=== PATIENT | female | born 1990 | race Caucasian/White ===

== ENCOUNTER 2020-05-13 09:36 | Emergency (ER) | payer OTHER ==
[2020-05-13] MEDS ORDERED: KETOROLAC 30 MG/ML INJ ONE (11:24)
[2020-05-13] MEDS ORDERED: ONDANSETRON 4 MG/2 ML VIAL ONE (11:24)
[2020-05-13] MEDS ORDERED: NA CHLORIDE 0.9% 1,000 ML ONE (11:24)
[2020-05-13 11:35] LABS: Urine Blood NEGATIVE (NEG); Urine Glucose NEGATIVE (NEG); Urine Protein NEGATIVE (NEG); Urine Specific Gravity 1.025 (1.005-1.030); Urine pH 8.5 (5.0-7.0)
--- NOTE | 2020-05-13 11:52 | RAD REPORT ---
EXAM DESCRIPTION: US - Abdomen Exam Limited - 05/13/2020 11:21 am CLINICAL HISTORY: ABD PAIN COMPARISON: No comparisons FINDINGS: Patient was not fasting for the examination. The gallbladder is adequately filled for eval uation. No gallstones, sludge or other abnormalities within the gallbladder lumen. There is no wall t hickening or pericholecystic fluid. No common duct stone or biliary tree dilatation identified. IMPRESSION: Normal gallbladder and biliary tree ultrasound.
[2020-05-13 12:32] LABS: Absolute Lymphocytes (CBC) 1.6 K/uL (0.7-4.9); Basophils % 0.3 % (0-1.3); Hematocrit 35.1 % (36.0-45.0); Lymphocytes % 20.5 % (15.3-44.8); MPV 7.7 fL (7.6-11.3); RBC Red Blood Cell Count 4.53 M/uL (3.86-4.86)
[2020-05-13 12:51] LABS: Albumin 3.2 g/dL (3.4-5.0); Bilirubin Direct 0.1 mg/dL (0-0.2); Bilirubin Total 0.3 mg/dL (0.2-1.0); Potassium 4.4 mmol/L (3.5-5.1); Protein, Total 7.3 g/dL (6.4-8.2)
--- NOTE | 2020-05-13 13:57 | RAD REPORT ---
EXAM DESCRIPTION: CTAbdomen Pelvis W Contrast - 05/13/2020 1:37 pm CLINICAL HISTORY: Abdominal pain. ABD PAIN COMPARISON: No comparisons TECHNIQUE: Biphasic CT imaging of the abdomen and pelvis was performed with 100 ml non-ionic IV cont rast. All CT scans are performed using dose optimization technique as appropriate and may include automated exposure control or mA/KV adjustment according to patient size. FINDINGS: Slight interstitial lung opacities are seen left lung base laterally. The liver, spleen, pancreas, adrenal glands and kidneys are within normal limits. No bowel obstruction, free air, free fluid or abscess. Significant fecal retention throughout the col on with fecalization of small bowel also seen. The appendix is normal. No evidence of significant ly mphadenopathy. No suspicious bony findings. IMPRESSION: Significant fecal retention pattern is noted.
--- NOTE | 2020-05-13 14:13 | EDPHYS ---
Physician Documentation [facility] Name: Melissa Reyes Age: 29 yrs Sex: Female : 1990 Arrival Date: 05/13/2020 Time: 09:40 Bed 20 Private MD: ED Physician Sylvester Lott HPI: 05/13 14:11 This 29 yrs old Female presents to ER via Ambulatory with complaints of kb Abdominal Pain. 14:11 The patient presents with abdominal pain in the right upper quadrant. Onset: The kb symptoms/episode began/occurred 3 day(s) ago. The symptoms do not radiate. Associated signs and symptoms: Pertinent positives: nausea. The symptoms are described as constant. Modifying factors: The symptoms are alleviated by nothing, the symptoms are aggravated by nothing. Severity of pain: At its worst the pain was moderate in the emergency department the pain is unchanged. The patient has not experienced similar symptoms in the past. The patient has not recently seen a physician. Pt reports RUQ pain that started 3 days ago. States the pain lasted for a short time and resolved on its own the first two days. Today that pain would not go away. 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 - Social history:: Smoking status: Patient reports the use of cigarette tobacco products, smokes one-half pack cigarettes per day. ROS: 14:10 Constitutional: Negative for fever, chills, and weight loss, Cardiovascular: Negative kb for chest pain, palpitations, and edema, Respiratory: Negative for shortness of breath, cough, wheezing, and pleuritic chest pain, Back: Negative for injury and pain, MS/Extremity: Negative for injury and deformity, Skin: Negative for injury, rash, and discoloration, Neuro: Negative for headache, weakness, numbness, tingling, and seizure. 14:10 Abdomen/GI: Positive for abdominal pain, nausea. Exam: 14:10 Constitutional: This is a well developed, well nourished patient who is awake, alert, kb and in no acute distress. Head/Face: Normocephalic, atraumatic. Chest/axilla: Normal chest wall appearance and motion. Nontender with no deformity. No lesions are appreciated. Cardiovascular: Regular rate and rhythm with a normal S1 and S2. No gallops, murmurs, or rubs. Normal PMI, no JVD. No pulse deficits. Respiratory: Lungs have equal breath sounds bilaterally, clear to auscultation and percussion. No rales, rhonchi or wheezes noted. No increased work of breathing, no retractions or nasal flaring. Back: No spinal tenderness. No costovertebral tenderness. Full range of motion. Skin: Warm, dry with normal turgor. Normal color with no rashes, no lesions, and no evidence of cellulitis. MS/ Extremity: Pulses equal, no cyanosis. Neurovascular intact. Full, normal range of motion. Neuro: Awake and alert, GCS 15, oriented to person, place, time, and situation. Cranial nerves II-XII grossly intact. Motor strength 5/5 in all extremities. Sensory grossly intact. Cerebellar exam normal. Normal gait. 14:10 Abdomen/GI: Inspection: abdomen appears normal, Bowel sounds: normal, in all quadrants, Palpation: soft, in all quadrants, moderate abdominal tenderness, in the right upper quadrant. Vital Signs: 10:01 BP 117 / 81; Pulse 76; Resp 18 S; Temp 97.1(TE); Pulse Ox 100% on R/A; Weight 99.79 kg ca1 (R); Height 5 ft. 10 in. (177.80 cm) (R); Pain 10/10; 10:01 Body Mass Index 31.57 (99.79 kg, 177.80 cm) ca1 MDM: 10:47 Patient medically screened. kb 14:10 Data reviewed: vital signs, nurses notes. Data interpreted: Pulse oximetry: on room air kb is 100 %. Interpretation: normal. Counseling: I had a detailed discussion with the patient and/or guardian regarding: the historical points, exam findings, and any diagnostic results supporting the discharge/admit diagnosis, lab results, radiology results, the need for outpatient follow up, a family practitioner, to return to the emergency department if symptoms worsen or persist or if there are any questions or concerns that arise at home. 05/13 11:00 Order name: Basic Metabolic Panel; Complete Time: 12:57 kb 05/13 11:00 Order name: CBC with Diff; Complete Time: 12:36 kb 05/13 11:00 Order name: Hepatic Function; Complete Time: 12:57 kb 05/13 11:00 Order name: Lipase; Complete Time: 12:57 kb 05/13 11:27 Order name: Urine Dipstick--Ancillary (enter results); Complete Time: 11:40 bd 05/13 11:27 Order name: Urine --Ancillary (enter results); Complete Time: 11:40 bd 05/13 10:10 Order name: Urine Test (obtain specimen); Complete Time: 12:31 kb 05/13 10:10 Order name: Urine Dipstick-Ancillary (obtain specimen); Complete Time: 12:31 kb 05/13 11:00 Order name: US Abdomen Limited; Complete Time: 11:53 kb 05/13 12:38 Order name: CT Abd/Pelvis - IV Contrast Only; Complete Time: 14:00 kb 05/13 11:00 Order name: IV Saline Lock; Complete Time: 12:31 kb 05/13 11:00 Order name: Labs collected and sent; Complete Time: 12:31 kb Administered Medications: 12:31 Drug: NS 0.9% 1000 ml Route: IV; Rate: 1000 ml; Site: left antecubital; ph 15:15 Follow up: Response: No adverse reaction; IV Status: Completed infusion; IV Intake: ph 1000ml 12:31 Drug: Zofran (Ondansetron) 4 mg Route: IVP; Site: left antecubital; ph 15:16 Follow up: Response: No adverse reaction ph 12:31 Drug: TORadol - Ketorolac 15 mg Route: IVP; Site: left antecubital; ph 15:16 Follow up: Response: No adverse reaction ph 15:10 Drug: Magnesium Citrate Liquid 300 ml Route: PO; ph 15:16 Follow up: Response: No adverse reaction ph Disposition: 17:51 Co-signature as Attending Physician, Sylvester Lott MD. rn Disposition: 05/13/20 14:13 Discharged to Home. Impression: Upper abdominal pain, unspecified, Constipation. - Condition is Stable. - Discharge Instructions: Biliary Colic, Adult, Constipation, Adult, [id number]. - Prescriptions for Bentyl 20 mg Oral Tablet - take 1 tablet by ORAL route every 6 hours As needed; 20 tablet. Zofran 4 mg Oral Tablet - take 1 tablet by ORAL route every 6 hours As needed; 20 tablet. - Medication Reconciliation Form, Thank You Letter, Antibiotic Education, Prescription Opioid Use form. - Follow up: Emergency Department; When: As needed; Reason: Worsening of condition. Follow up: Private Physician; When: 2 - 3 days; Reason: Recheck today's complaints, Continuance of care, Re-evaluation by your physician. Signatures: Dispatcher [employer] EDMS Ana Velasquez, JOMAR-Hailey LAKEP-Sylvester Muñoz MD MD rn Frieda Miguel RN RN [employer], Vianney RN RN [facility] Corrections: (The following items were deleted from the chart) 15:23 14:13 05/13/2020 14:13 Discharged to Home. Impression: Upper abdominal pain, ph unspecified; Constipation. Condition is Stable. Forms are Medication Reconciliation Form, Thank You Letter, Antibiotic Education, Prescription Opioid Use. Follow up: Emergency Department; When: As needed; Reason: Worsening of condition. Follow up: Private Physician; When: 2 - 3 days; Reason: Recheck today's complaints, Continuance of care, Re-evaluation by your physician. kb
--- NOTE | 2020-05-13 14:13 | ER ---
Nurse's Notes [facility] Name: Melissa Reyes Age: 29 yrs Sex: Female : 1990 Arrival Date: 05/13/2020 Time: 09:40 Bed 20 Private MD: Diagnosis: Upper abdominal pain, unspecified;Constipation Presentation: 05/13 10:01 Chief complaint: Patient states: Lower abdominal pain, more on R, intermittent and ca1 crampy, radiating to the R mid back. Started 3 days ago. Reports nausea. Denies vomiting and diarrhea. Coronavirus screen: Patient denies a cough. Patient denies shortness of breath or difficulty breathing. Patient denies measured and/or subjective temperature greater than 100.4F prior to today's visit. Patient denies travel on a cruise ship or to a country the [facility] currently lists as an affected area. Patient denies contact with known and/or suspected case of COVID-19. Proceed with normal triage. Ebola Screen: Patient negative for fever greater than or equal to 101.5 degrees Fahrenheit, and additional compatible Ebola Virus Disease symptoms Patient denies exposure to infectious person. Patient denies travel to an Ebola-affected area in the 21 days before illness onset. No symptoms or risks identified at this time. Initial Sepsis Screen: Does the patient meet any 2 criteria? No. Patient's initial sepsis screen is negative. Does the patient have a suspected source of infection? No. Patient's initial sepsis screen is negative. Risk Assessment: Do you want to hurt yourself or someone else? Patient reports no desire to harm self or others. Onset of symptoms was May 13, 2020. 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 - Social history:: Smoking status: Patient reports the use of cigarette tobacco products, smokes one-half pack cigarettes per day. Screenin:21 Abuse screen: Denies threats or abuse. Denies injuries from another. Nutritional ph screening: No deficits noted. Tuberculosis screening: No symptoms or risk factors identified. Fall Risk None identified. Assessment: 11:00 General: Appears in no apparent distress. comfortable, well groomed, Behavior is calm, ph cooperative, appropriate for age, Denies fever. Pain: Complains of pain in epigastric area Pain radiates to right upper quadrant. Neuro: Level of Consciousness is awake, alert, obeys commands, Oriented to person, place, time, situation. Cardiovascular: Capillary refill < 3 seconds in bilateral fingers Patient's skin is warm and dry. Respiratory: Reports cough that is Airway is patent Respiratory effort is even, unlabored, Denies shortness of breath. GI: Abdomen is round non-distended, Abd is soft X 4 quads Abdomen is tender to palpation in right upper quadrant. GI: Reports upper abdominal pain, epigastric pain, nausea. Derm: Skin is intact, is healthy with good turgor, Skin is pink, warm \\T\\ dry. Musculoskeletal: Circulation, motion, and sensation intact. Range of motion: intact in all extremities. 13:46 Reassessment: Patient appears in no apparent distress at this time. Patient and/or ph family updated on plan of care and expected duration. Pain level reassessed. Patient is alert, oriented x 3, equal unlabored respirations, skin warm/dry/pink. Pt taken to CT via wheelchair. 14:45 Reassessment: Patient appears in no apparent distress at this time. Patient and/or ph family updated on plan of care and expected duration. Pain level reassessed. Patient is alert, oriented x 3, equal unlabored respirations, skin warm/dry/pink. Pt contacting rehab facility to inform them of possible COVID and see if she will be d/c from there. 15:16 Reassessment: Patient appears in no apparent distress at this time. Patient and/or ph family updated on plan of care and expected duration. Pain level reassessed. Patient is alert, oriented x 3, equal unlabored respirations, skin warm/dry/pink. Pt d/c to [facility], states, " I have to wait in the lobby while they pack my stuff and my family has to come and get me from there." Instructed pt to find [facility] testing facility when she returns home. Vital Signs: 10:01 BP 117 / 81; Pulse 76; Resp 18 S; Temp 97.1(TE); Pulse Ox 100% on R/A; Weight 99.79 kg ca1 (R); Height 5 ft. 10 in. (177.80 cm) (R); Pain 10/10; 10:01 Body Mass Index 31.57 (99.79 kg, 177.80 cm) ca1 ED Course: 09:40 Patient arrived in ED. fj1 09:53 Ana Velasquez FNP-C [facility]. kb 09:53 Sylvester Lott MD is Attending Physician. kb 10:03 Triage completed. ca1 10:07 Arm band placed on right wrist. ca1 11:00 Patient has correct armband on for positive identification. Bed in low position. Call ph light in reach. Side rails up X 1. Pulse ox on. NIBP on. Door closed. Noise minimized. Warm blanket given. 11:12 Frieda Miguel, RN is Primary Nurse. ph 11:22 US Abdomen Limited In Process Unspecified. EDMS 12:22 Inserted saline lock: 20 gauge in left antecubital area, using aseptic technique. dh4 13:37 CT Abd/Pelvis - IV Contrast Only In Process Unspecified. EDMS 15:22 No provider procedures requiring assistance completed. IV discontinued, intact, ph bleeding controlled, No redness/swelling at site. Pressure dressing applied. Administered Medications: 12:31 Drug: NS 0.9% 1000 ml Route: IV; Rate: 1000 ml; Site: left antecubital; ph 15:15 Follow up: Response: No adverse reaction; IV Status: Completed infusion; IV Intake: ph 1000ml 12:31 Drug: Zofran (Ondansetron) 4 mg Route: IVP; Site: left antecubital; ph 15:16 Follow up: Response: No adverse reaction ph 12:31 Drug: TORadol - Ketorolac 15 mg Route: IVP; Site: left antecubital; ph 15:16 Follow up: Response: No adverse reaction ph 15:10 Drug: Magnesium Citrate Liquid 300 ml Route: PO; ph 15:16 Follow up: Response: No adverse reaction ph Intake: 15:15 IV: 1000ml; Total: 1000ml. ph Outcome: 14:13 Discharge ordered by MD. [email or web address] 15:23 Discharged to Rehab Facility ph 15:23 Condition: good 15:23 Discharge instructions given to patient, Instructed on discharge instructions, follow up and referral plans. medication usage, Demonstrated understanding of instructions, follow-up care, medications, Prescriptions given X 2. 15:23 Patient left the ED. ph Signatures: Dispatcher [employer] EDAna Arzola, MACHINE TAPER-C JOMAR-Frieda Light, RN RN [facility], Vianney, RN RN [facility] Miguel Rosales [facility] Javier Izaguirre [facility]
[2020-05-13] MEDS ORDERED: MAGNESIUM CITRATE 300 ML BOT ONE (15:12)
[2020-05-14 05:01] VITALS: BP 117/81; TEMP 97.1; O2SAT 100
== END 2020-05-13 15:23 | disposition home or self-care (01) ==
LOC: ER 09:36
DX: K59.00 Constipation, unspecified (principal); F34.1 Dysthymic disorder; F17.210 Nicotine dependence, cigarettes, uncomplicated
CPT/HCPCS: 85025; 80048; 36415; 81025; 80076; 81003; 83690; 74177; 76705; Q9967; J7030; J2405; 96361; 96374; 96375; 99284